=== PATIENT | male | born 1995 | race Caucasian/White ===

== ENCOUNTER 2018-03-18 17:15 | Emergency (ER) | payer SELFPAY ==
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
[2018-03-18 19:09] VITALS: BP 108/65
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
[2018-03-19 07:22] LABS: eGFR (Non-African) > 60
[2018-03-19 07:23] LABS: MEAN CORPUSCULAR HEMOGLOBIN 28.6 pg (28.0-34.0)
[2018-03-19 07:24] LABS: BASOPHILS % 0.2 (0.0-1.5); EOSINOPHILS % 1.5 % (0.0-6.8); NEUTROPHILS # 4.3 # k/uL (1.4-7.7)
[2018-03-19 08:23] LABS: CANNABINOIDS NON NEGATIVE ng/mL (< 50); METHYLENEDIOXYMETHAMPHETAMINE NEGATIVE ng/mL (<500)
[2018-03-22 14:50] LABS: CANNABINOIDS CONFIRMATION >150 ng/mL (<15)
== END 2018-03-18 20:50 | disposition home or self-care (01) ==
LOC: ED 17:15
DX: Z04.1 Encounter for examination and observation following transport accident (principal); R51 Headache; M54.9 Dorsalgia, unspecified; R10.2 Pelvic and perineal pain; V48.5XXA Car driver injured in noncollision transport accident in traffic accident, initial encounter; Y93.89 Activity, other specified; Y92.410 Unspecified street and highway as the place of occurrence of the external cause
CPT/HCPCS: 36415; 70450; 70486; 80053; 80320; 80377; 85025; 99283; 99285; G0480; G0481